=== PATIENT | female | born 1955 | race Caucasian/White ===

== ENCOUNTER 2022-03-05 14:30 | Outpatient (RCR) | payer MEDICARE, SELFPAY ==
[2021-12-10 14:23] VITALS: BMI 30.7
[2021-12-10 15:54] VITALS: BMI 30.7
== END 2022-03-06 23:59 | disposition home or self-care (01) ==
LOC: ANHDMC 14:30
DX: E11.65 Type 2 diabetes mellitus with hyperglycemia (principal); Z71.89 Other specified counseling; Z71.3 Dietary counseling and surveillance
CPT/HCPCS: 97802; 99199; G0108; G0109

== ENCOUNTER 2022-03-25 15:30 | Outpatient (RCR) | payer MEDICARE, SELFPAY ==
[2022-03-27 08:37] VITALS: BMI 27.3
== END 2022-05-26 10:38 | disposition home or self-care (01) ==
LOC: ANHDMC 15:30
DX: E11.65 Type 2 diabetes mellitus with hyperglycemia (principal); Z71.3 Dietary counseling and surveillance; Z71.89 Other specified counseling
CPT/HCPCS: 97803; 99199; G0109

== ENCOUNTER 2022-07-03 15:26 | Outpatient (RCR) | payer MEDICARE, SELFPAY | END 2022-07-07 12:04 | disposition home or self-care (01) | LOC: ANHDMC 15:26 | DX: E11.65 Type 2 diabetes mellitus with hyperglycemia (principal); Z71.89 Other specified counseling | CPT/HCPCS: G0109 ==